=== PATIENT | female | born 1960 | race African-American/Black ===

== ENCOUNTER 2017-11-14 14:00 | Observation (INO) ==
[2017-11-14] MEDS ORDERED: ONDANSETRON 4 MG/2 ML VIAL IV STA (16:16)
[2017-11-14] MEDS ORDERED: ONDANSETRON 4 MG/2 ML VIAL ONE (18:09)
[2017-11-14 18:38] LABS: Basophils % 0.2 % (0.0-0.8); Eosinophils # 0.1 10*3/uL (0.0-0.87); Eosinophils % 0.7 % (0.00-10.9); Hematocrit 39.3 VOL% (35.7-47.0); Hemoglobin 12.6 GM/DL (12.0-16.0); Immature Granulocytes % 0.4 %; Immature Granulocytes Absolute 0.03 #; Lymphocytes # 2.8 10*3/uL (1.4-4.0); Mean Corpuscular HGB Conc 32.1 GM/DL (32-36); Mean Corpuscular Hemoglobin 29 PG (27-34); Mean Corpuscular Volume 90.3 FL (87-102); Mean Platelet Volume 10.5 FL (9.6-12.0); Monocytes # 0.6 10*3/uL (0.11-0.8); Monocytes % 6.5 % (1.7-12.7); Neutrophils % 59.2 % (38.7-73.9); Platelet Count 184 T/CUMM (130-400); Red Blood Count 4.35 MC/CUMM (3.8-5.5); White Blood Count 8.4 T/CUMM (4-12)
[2017-11-14 18:49] LABS: PT Patient Result 10.9 SECS
[2017-11-14 18:50] LABS: Apearance,Urine CLEAR (Clear); Bacteria,Urine Occasional /HPF (Few); Bilirubin,Urine Negative (Negative); Blood, Urine Negative (Negative); Glucose,Urine (UA) Negative (Negative); Ketones,Urine Negative (Negative); Mucus,Urine Occasional /LPF (Occasional); Nitrite,Urine Negative (Negative); Protein,Urine Negative; RBC,Urine <1 /HPF (0-4); Squamous Epithelial Cell,Urine Occasional /HPF (0-10); Urine Color Yellow (Yellow); Urine Specific Gravity 1.012 (1.001-1.035); Urine Urobilinogen < 2.0 EU/DL (0.2-1.0); WBC,Urine <1 /HPF (0-6)
[2017-11-14 18:57] LABS: Barbiturates Screen,Urine Negative (Negative); Benzodiazepines Screen,Urine Negative (Negative); Cannabinoid Screen,Urine Negative (Negative); Opiate Screen,Urine Negative (Negative); Phencyclidine Screen,Urine Negative (Negative)
[2017-11-14 19:20] LABS: Alanine Aminotransferase 19 U/L (13-56); Albumin 3.7 G/DL (3.4-5.0); Alkaline Phosphatase 107 U/L (45-117); Aspartate Amino Transferase 13 U/L (0-37); Blood Urea Nitrogen 11 MG/DL (7-18); Calcium 8.8 MG/DL (8.5-10.1); Glucose 90 MG/DL (74-106); Osmolality,Calculated 271.8 MOS/KG (273-304); Potassium 3.6 MMOL/L (3.5-5.1); Sodium 137 MMOL/L (136-145); Total Protein 7.4 G/DL (6.4-8.3); Troponin I Only < 0.015 NG/ML (0.00-0.045)
[2017-11-14] MEDS ORDERED: PROMETHAZINE 25 MG TABLET PO PRN (19:56)
[2017-11-14] MEDS ORDERED: ZALEPLON 5 MG CAPSULE PO PRN (19:56)
[2017-11-14] MEDS ORDERED: ACETAMINOPHEN 325 MG TABLET PO PRN (19:56)
[2017-11-14] MEDS ORDERED: ONDANSETRON 4 MG/2 ML VIAL IV PRN (19:56)
[2017-11-14] MEDS ORDERED: IBUPROFEN 800 MG TABLET PO PRN (20:07)
[2017-11-14] MEDS: LOVASTATIN 20 MG TABLET PO SCH (22:08)
[2017-11-14] MEDS: MECLIZINE 25 MG TABLET PO SCH (22:08)
[2017-11-14] MEDS: ENOXAPARIN 40 MG/0.4 ML SYRINGE SUBCUT SCH (22:08)
[2017-11-15 05:52] LABS: Calcium 8.4 MG/DL (8.5-10.1); Osmolality,Calculated 281.3 MOS/KG (273-304); Potassium 3.7 MMOL/L (3.5-5.1)
[2017-11-15] MEDS: MECLIZINE 25 MG TABLET PO SCH ×3 (08:37→20:28)
[2017-11-15] MEDS: amLODIPine 2.5 MG TABLET PO SCH (08:37)
[2017-11-15] MEDS: CETIRIZINE 10 MG TABLET PO SCH (08:37)
[2017-11-15] MEDS: ASPIRIN EC 81 MG TABLET PO SCH (08:37)
[2017-11-15] MEDS: PANTOPRAZOLE 40 MG TABLET PO SCH (08:38)
[2017-11-15] MEDS: LOVASTATIN 20 MG TABLET PO SCH (16:10)
[2017-11-15] MEDS: ENOXAPARIN 40 MG/0.4 ML SYRINGE SUBCUT SCH (20:27)
[2017-11-16 04:51] LABS: Calcium 8.3 MG/DL (8.5-10.1); Osmolality,Calculated 279.4 MOS/KG (273-304); Potassium 4.1 MMOL/L (3.5-5.1)
[2017-11-16 04:52] LABS: Calcium 8.6 MG/DL (8.5-10.1); Osmolality,Calculated 277.5 MOS/KG (273-304); Potassium 4.1 MMOL/L (3.5-5.1); Total Protein 6.8 G/DL (6.4-8.3)
[2017-11-16] MEDS: PANTOPRAZOLE 40 MG TABLET PO SCH (09:19)
[2017-11-16] MEDS: CETIRIZINE 10 MG TABLET PO SCH (09:20)
[2017-11-16] MEDS: MECLIZINE 25 MG TABLET PO SCH ×2 (09:20→15:39)
[2017-11-16] MEDS: ASPIRIN EC 81 MG TABLET PO SCH (09:20)
[2017-11-16] MEDS: amLODIPine 2.5 MG TABLET PO SCH (09:22)
[2017-11-16 16:35] VITALS: BP 120/67
[2017-11-17] MEDS ORDERED: CLOPIDOGREL 75 MG TABLET PO SCH (09:00)
== END 2017-11-16 17:10 | disposition home or self-care (01) ==
LOC: N.ED 14:00 → N.EDINP 14:00 → N.3E 20:41
PROVIDERS: ADMIT Internal Medicine; ATTEND Internal Medicine